=== PATIENT | male | born 1935 | race American Indian/Alaskan Native ===

== ENCOUNTER 2017-09-29 09:34 | Day surgery (SDC) | payer MEDICARE ==
[2016-11-28 00:40] VITALS: BMI 25.8
[2017-09-29 10:07] VITALS: O2SAT 99
[2017-09-29] MEDS ORDERED: Lactated Ringer's 1,000 ML IV ONE (13:00)
[2017-09-29] MEDS ORDERED: Propofol 10 mg/ml Inj (20 ML) ONE ×2 (13:03→13:13)
[2017-09-29 16:12] VITALS: PULSE 60; RESP 18; TEMP 97.5
[2017-09-29 16:16] VITALS: BP 135/93
== END 2017-09-29 14:25 | disposition home or self-care (01) ==
LOC: C.ENDO 09:34
PROVIDERS: ATTEND Internal Medicine Gastroenterology
DX: D12.2 Benign neoplasm of ascending colon (principal); D12.3 Benign neoplasm of transverse colon; D12.8 Benign neoplasm of rectum; K64.8 Other hemorrhoids
CPT/HCPCS: 45380; 88305; J2704; J7120